=== PATIENT | male | born 1975 | race Caucasian/White ===

== ENCOUNTER 2022-09-06 04:29 | Day surgery (SDC) | payer OTHER ==
[2022-09-03 09:40] VITALS: BMI 29.4
[2022-09-06] MEDS ORDERED: BUPIVACAINE HCL/PF 0.25% (2.5MG/ML) 10 ML VIAL ONE (09:22)
[2022-09-06] MEDS ORDERED: ROCURONIUM BROMIDE 50 MG/5 ML SYRINGE ONE (09:22)
[2022-09-06] MEDS ORDERED: MIDAZOLAM HCL 2 MG/2 ML SINGLE DOSE VIAL ONE (09:22)
[2022-09-06] MEDS ORDERED: cefOXitin SODIUM 1 GM VIAL (RESTRICTED TO ID) IVPB ONE (09:40)
[2022-09-06] MEDS ORDERED: CEFOXITIN SODIUM 1 GM IVPB ONE (09:46)
[2022-09-06] MEDS ORDERED: BUPIVACAINE HCL/PF 0.25% (2.5MG/ML) 10 ML VIAL IJ ONE ×3 (10:32→11:01)
[2022-09-06] MEDS ORDERED: SUGAMMADEX SODIUM 200 MG/2 ML VIAL ONE (10:57)
[2022-09-06] MEDS ORDERED: NEOSTIGMINE METHYLSULFATE 0.5 MG/ML - 10 ML MDV ONE (10:57)
[2022-09-06] MEDS ORDERED: GLYCOPYRROLATE 0.2 MG/1 ML VIAL ONE (10:57)
[2022-09-06] MEDS ORDERED: LACTATED RINGERS SOLUTION 1,000 ML IV SCH (11:30)
[2022-09-06] MEDS ORDERED: oxyCODONE HCL 5 MG TABLET PO PRN ×2 (12:44)
[2022-09-06 13:30] VITALS: BP 116/66; RESP 18; TEMP 97.8
[2022-09-06 17:16] VITALS: PULSE 58
== END 2022-09-06 14:55 | disposition home or self-care (01) ==
LOC: JASU-SURG 04:29
PROVIDERS: ATTEND Surgery
PROC: 0YU54JZ Supplement Right Inguinal Region with Synthetic Substitute, Percutaneous Endoscopic Approach (ICD-10-PCS; principal; 2022-09-06 09:00)
DX: K40.90 Unilateral inguinal hernia, without obstruction or gangrene, not specified as recurrent (principal)
CPT/HCPCS: 94760; C1781